=== PATIENT | female | born 2000 | race Caucasian/White ===

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

== ENCOUNTER → 2019-02-06 | Outpatient (CLI) | payer MEDICAID, SELFPAY ==
[2019-02-06 15:46] LABS: Hematocrit 38.9 % (37-47); Mean Corp Hgb Conc 33.4 g/gl (32-36); Mean Corpuscular Hgb 28.2 pg (27.0-32.0); Mean Corpuscular Volume 84.4 fL (81-99); Mean Platelet Vol. 11.8 fl (6.2-12.0); Platelet Count 354 K/mm3 (150-450); RBC Distribution Width CV 12.8 % (11.6-14.6); RBC Distribution Width SD 38.3 fl (35.1-43.9); Red Blood Count 4.61 M/mm3 (4.2-5.4); White Blood Count 11.2 K/mm3 (4.4-11.0)
[2019-02-06 15:50] LABS: Color, Urine Yellow (Yellow); Glucose, Dipstick Normal (Normal); Ketone-Dipstick 5 mg/dl (Negative); Leukocyte Esterase-Dipstick 500 /ul (Negative); Nitrite-Dipstick Negative (Negative); Occult Blood-Urine 10 /ul (Negative); Protein-Dipstick 30 mg/dl (Negative); Urine Bilirubin Dipstick Negative (Negative); Urine Clarity Sl. Cloudy (Clear); Urine Urobilinogen 1 mg/dl (Normal)
[2019-02-06 15:52] LABS: Scan Indicated on CBC? Y/N NO
[2019-02-06 15:55] LABS: AST(SGOT) 70 U/L (15-37); Alanine Aminotransfer ALT/SGPT 131 U/L (13-56); Uric Acid 8.7 mg/dL (2.6-6.0)
== END | disposition home or self-care (01) ==
LOC: WOBLAB 14:03
PROVIDERS: Visit Provider Obstetrics & Gynecology
DX: O13.3 Gestational [pregnancy-induced] hypertension without significant proteinuria, third trimester (principal); Z3A.00 Weeks of gestation of pregnancy not specified
CPT/HCPCS: 36415; 81002; 84450; 84460; 84550; 85027; 87081

== ENCOUNTER 2019-02-09 11:22 | Outpatient (CLI) | payer MEDICAID, SELFPAY ==
[2019-02-09 11:58] LABS: Hematocrit 38.2 % (37-47); Hemoglobin 12.7 g/dl (12.0-15.0); Mean Corp Hgb Conc 33.2 g/gl (32-36); Mean Corpuscular Hgb 28.3 pg (27.0-32.0); Mean Corpuscular Volume 85.1 fL (81-99); Mean Platelet Vol. 11.7 fl (6.2-12.0); Platelet Count 299 K/mm3 (150-450); RBC Distribution Width CV 12.9 % (11.6-14.6); Red Blood Count 4.49 M/mm3 (4.2-5.4); White Blood Count 8.6 K/mm3 (4.4-11.0)
[2019-02-09 11:59] LABS: Scan Indicated on CBC? Y/N NO
[2019-02-09 12:09] LABS: Partial Thromboplast Time 28.1 Seconds (24.1-36.2); Prothrombin Time (Protime)PT. 12.9 SECONDS (11.7-14.9)
[2019-02-09 12:11] LABS: AST(SGOT) 89 U/L (15-37); Alanine Aminotransfer ALT/SGPT 140 U/L (13-56); Creatinine, Serum 0.77 mg/dL (0.55-1.02); EST Glomerular Filtration Rate 103 mL/min (>60); Est Glom Filt Rate - Afr Amer 125 mL/min (>60); Uric Acid 8.8 mg/dL (2.6-6.0)
[2019-02-09 12:15] LABS: Protein, Urine (Random) 31.3 mg/dL (<11.9); Protein:Creat Ratio 206 mg/g CRE (0-200)
[2019-02-09 12:42] VITALS: BMI 38.9
[2019-02-09 12:51] LABS: Bedside Glucose 92 mg/dL (70-110)
--- NOTE | 2019-02-09 13:01 | US_ITS ---
STUDY: SECOND AND THIRD TRIMESTER OBSTETRICAL ULTRASOUND - LIMITED REASON FOR EXAM: Female, 18 years old. Growth LMP: 05/27/2018 PRIOR ULTRASOUND: None. TECHNIQUE: Transabdominal TECHNICAL QUALITY: Adequate. FINDINGS: There is a single intrauterine fetus. The fetus is in a cephalic presentation. There is demonstrated cardiac activity with a heart rate of 135 bpm. There is a normal amniotic fluid volume. The largest amniotic fluid pocket measures 6.5 cm. The amniotic fluid index (MARIAMA) is 16.6 cm. The placenta is anterior in location and is not low lying. There are Grade 3 placental changes. The cervix measures 0.8 cm in length. Internal funneling is present. BIOMETRY: BPD: 8.13 cm: 32 weeks, 5 days HC: 32.76: 37 weeks, 2 days AC: 31.67: 35 weeks, 5 days FL: 6.94: 35 weeks, 5 days Age by LMP: 36 weeks, 6 days. TAMICA by LMP: 03/03/2019. age by current US: 35 weeks, 3 days. TAMICA by current US: 03/13/2019. Estimated weight: 2681 grams, +/- 391 grams, 20 percentile. US/OB Limited With Biometrics IMPRESSION: Intrauterine gestation with sonographic age of 35 weeks 3 days. The cervix measures 0.8 cm in length. Internal funneling is present. Positive cardiac activity. Normal amniotic fluid volume. Normal placenta. Electronically Signed: Lebron Glynn MD at 15:12 EDT Tel , Service support ,
--- NOTE | 2019-02-09 13:06 | US_ITS ---
STUDY: OBSTETRICAL ULTRASOUND - BIOPHYSICAL PROFILE REASON FOR EXAM: Female, 18 years old. well-being LMP: 05/27/2018 PRIOR ULTRASOUND: None. TECHNIQUE: Transabdominal TECHNICAL QUALITY: Adequate. FINDINGS: There is a single intrauterine fetus. The fetus is in a cephalic presentation. There is demonstrated cardiac activity with a heart rate of 135 bpm. There is a normal amniotic fluid volume. The largest amniotic fluid pocket measures 6.5 cm. The amniotic fluid index (MARIAMA) is 16.6 cm. The placenta is anterior in location and is not low lying. There are Grade 3 placental changes. The cervix measures 0.8 cm in length. Internal funneling is present. BIOMETRY: BPD: 8.13 cm: 32 weeks, 5 days HC: 32.76: 37 weeks, 2 days AC: 31.67: 35 weeks, 5 days FL: 6.94: 35 weeks, 5 days Age by LMP: 36 weeks, 6 days. TAMICA by LMP: 03/03/2019. age by current US: 35 weeks, 3 days. TAMICA by current US: 03/13/2019. Estimated weight: 2681 grams, +/- 391 grams, 20 percentile. BIOPHYSICAL PROFILE: Breathing Movements (FBM): 2 Gross Body Movements (GBM): 2 Tone (FT): 2 Amniotic Fluid Volume (AFV): 2 TOTAL SCORE: / 8 US/Biophysical Profile IMPRESSION: Normal biophysical profile of 04/04. Electronically Signed: Lebron Glynn MD at 15:14 EDT Tel , Service support ,
--- NOTE | 2019-02-09 13:13 | US_ITS ---
STUDY: ABDOMINAL ULTRASOUND - RIGHT UPPER QUADRANT REASON FOR VISIT: Female, 18 years old. iTCHY PROTEIN IN URINE--CHOLELITHIASIS. TECHNIQUE: Ultrasound evaluation of the right upper quadrant was performed with real-time and static mooney-scale imaging. TECHNICAL QUALITY: Adequate. COMPARISON: None. FINDINGS: Liver: The liver measures 16.6 cm. There is normal echogenicity of the liver. The bile ducts are within normal limits. Gallbladder: The gallbladder wall measures 2.0 mm. There is a negative sonographic Roper's sign. There is no pericholecystic fluid. There are multiple echogenic structures within the gallbladder, consistent with multiple gallstones. Common Bile Duct (C.B.D.): The common bile duct measures 3.0 mm. Pancreas: There is nonvisualization of the pancreas. Right Kidney: Normal size of the right kidney. The right kidney measures 9.9 cm. There is no right hydronephrosis. US/Abdomen Limited IMPRESSION: Cholelithiasis. Electronically Signed: Shannon Hankins MD at 14:19 EDT Tel , Service support ,
[2019-02-09] MEDS: Betamethasone/Betamethasone 30 MG/5 ML Vial 12 MG IM (13:26)
[2019-02-09 13:42] LABS: Mucous, Urine 0 SEEN /hpf (<or=2+); Red Blood Cells-Urine 0 SEEN /hpf (0-5)
[2019-02-09 13:45] LABS: Color, Urine Yellow (Yellow); Glucose, Dipstick Normal (Normal); Ketone-Dipstick Negative (Negative); Leukocyte Esterase-Dipstick 500 /ul (Negative); Nitrite-Dipstick Negative (Negative); Occult Blood-Urine 10 /ul (Negative); Protein-Dipstick 15 mg/dl (Negative); Specific Gravity, Urine 1.015 (1.002-1.030); Urine Bilirubin Dipstick Negative (Negative); Urine Clarity Clear (Clear); Urine Urobilinogen Normal (Normal)
[2019-02-09 13:59] LABS: Bacteria 1+ /hpf (None Seen); Squamous Epithelial Cells - UA 5-10 SEEN /hpf (5-10); White Blood Cells 10-25 SEEN /hpf (0-5)
[2019-02-09 14:00] LABS: Amphetamine Urine VISTA NEGATIVE (<1000 ng/mL); Barbiturate Urine VISTA NEGATIVE (< 200 ng/mL); Benzodiazepine Urine VISTA NEGATIVE (< 200 ng/mL); Cocaine Urine VISTA NEGATIVE (< 300 ng/mL); Ecstacy Urine VISTA NEGATIVE (< 500 ng/mL); Fibrinogen 573 mg/dl (203-444); Methadone Urine VISTA NEGATIVE (< 300 ng/mL); PCP Urine VISTA NEGATIVE (< 25 ng/mL); THC Urine VISTA NEGATIVE (< 50 ng/mL); Vista UDS pH Range 5
[2019-02-09 14:09] LABS: ALB/GLOB Ratio 0.5 RATIO (0.9-2.4); AST(SGOT) 98 U/L (15-37); Alanine Aminotransfer ALT/SGPT 149 U/L (13-56); Albumin, Serum 2.4 g/dL (3.2-5.0); Alkaline Phosphatase 202 U/L (45-117); Anion Gap 6 (5-15); BUN 9 mg/dL (7-18); BUN/Creat Ratio 12.9 RATIO (10-20); Bilirubin, Direct 0.09 mg/dL (0.00-0.30); Calcium,Total 9.1 mg/dL (8.5-10.1); Chloride 107 mmol/L (98-107); EST Glomerular Filtration Rate 115 mL/min (>60); Est Glom Filt Rate - Afr Amer 139 mL/min (>60); Estimated Creatinine Clearance 161.06 ml/min; GGTP 12 U/L (5-55); Globulin 4.4 g/dL (2.2-4.2); Glucose 81 mg/dL (74-106); Protein, Total 6.8 g/dL (6.4-8.2); Sodium Level 135 mmol/L (136-145)
[2019-02-09] MEDS: Ursodiol 250 MG Tablet PO ×2 (15:46→22:02)
--- NOTE | 2019-02-09 16:16 | PCM.HP.OB ---
- Problem List (1) Elevated liver enzymes Status: Acute (2) Pruritus of in third trimester Status: Acute History Date of Admission: 02/10/19 Final TAMICA: 03/03/19 Gestational age: 36 weeks and 6 days History of this : This is a 18 year-old, at 36w6d weeks gestational age presents due to elevated liver enzymes. Patient was evaluated in the office on Monday and had borderline elevated blood pressures and liver enzymes that were doubled but had normal platelets and no significant proteinuria and was asymptomatic. Patient presents today for repeat evaluation and denies any headache nausea vomiting or right upper quadrant pain. She has had intense pruritus in the last week. She denies any rash. She denies any known exposure to hepatitis, abuse, and denies any recent infection symptoms. Allergies No Known Allergies Allergy (Verified 02/09/19 12:42) Home Medications: Home Medications Vit No.130/Iron/Folic [ Tablet] 1 each PO DAILY 02/09/19 Smoking Status: Never smoker Alcohol: None Number of Fetus(es): 1 Heart Tracin moderate variability reactive no decelerations category I tracing [place]: no regular History Past Pregnancies: Past Pregnancies Delivery Date Name GA/Weeks Outcome Route Weight Infant Gender Labor Length Anesthesia Delivery Location Provider FOB Labs: Mom's Microbiology 02/09/19 13:30 Urine, Clean Catch Urine Culture - Pending Mom's Problem List Problem Status Onset Code Elevated liver enzymes Acute R74.8 Pruritus of in third trimester Acute O99.713, L29.9 Mom's Labs & Results 02/09/19 02/09/19 02/09/19 11:45 11:45 11:45 WBC 8.6 RBC 4.49 Hgb 12.7 Hct 38.2 MCV 85.1 MCH 28.3 MCHC 33.2 RDW 12.9 RDW Differential 40.0 Plt Count 299 MPV 11.7 PT 12.9 INR 1.0 APTT 28.1 Fibrinogen Sodium Potassium Chloride Carbon Dioxide Anion Gap BUN Creatinine Estim Creat Clear Calc Est GFR (MDRD) Af Amer Est GFR (MDRD) Non-Af BUN/Creatinine Ratio Glucose Uric Acid Calcium Total Bilirubin Direct Bilirubin GGT AST ALT Alkaline Phosphatase Total Protein Albumin Globulin Albumin/Globulin Ratio Urine Color Urine Clarity Urine pH Ur Specific [place] Urine Protein Urine Glucose (UA) Urine Ketones Urine Occult Blood Urine Nitrite Urine Bilirubin Urine Urobilinogen Ur Leukocyte Esterase Urine RBC Urine WBC Ur Squamous Epith Cells Urine Bacteria Urine Mucus U Random Total Protein 31.3 H Urine Creatinine 152.00 Protein/Creatinin Ratio 206 H Urine Opiates Screen Urine Methadone Screen Ur Barbiturates Screen Ur Phencyclidine Scrn Ur Amphetamines Screen U Methamphetamin-MDMA U Benzodiazepines Scrn Urine Cocaine Screen U Cannabinoids Screen Ur Drug Screen Comment Hepatitis A IgM Ab Hep Bs Antigen Hep B Core IgM Ab Hepatitis C Ab (EIA) Miscellaneous Test POC Glucose Blood Type Antibody Screen 02/09/19 02/09/19 02/09/19 11:45 11:45 12:40 WBC RBC Hgb Hct MCV MCH MCHC RDW RDW Differential Plt Count MPV PT INR APTT Fibrinogen Sodium Potassium Chloride Carbon Dioxide Anion Gap BUN Creatinine 0.77 Estim Creat Clear Calc Est GFR (MDRD) Af Amer 125 Est GFR (MDRD) Non-Af 103 BUN/Creatinine Ratio Glucose Uric Acid 8.8 H Calcium Total Bilirubin Direct Bilirubin GGT AST 89 H ALT 140 H Alkaline Phosphatase Total Protein Albumin Globulin Albumin/Globulin Ratio Urine Color Urine Clarity Urine pH Ur Specific [place] Urine Protein Urine Glucose (UA) Urine Ketones Urine Occult Blood Urine Nitrite Urine Bilirubin Urine Urobilinogen Ur Leukocyte Esterase Urine RBC Urine WBC Ur Squamous Epith Cells Urine Bacteria Urine Mucus U Random Total Protein Urine Creatinine Protein/Creatinin Ratio Urine Opiates Screen Urine Methadone Screen Ur Barbiturates Screen Ur Phencyclidine Scrn Ur Amphetamines Screen U Methamphetamin-MDMA U Benzodiazepines Scrn Urine Cocaine Screen U Cannabinoids Screen Ur Drug Screen Comment Hepatitis A IgM Ab Hep Bs Antigen Hep B Core IgM Ab Hepatitis C Ab (EIA) Miscellaneous Test POC Glucose 92 Blood Type B POSITIVE Antibody Screen NEGATIVE 02/09/19 02/09/19 02/09/19 13:30 13:30 13:30 WBC RBC Hgb Hct MCV MCH MCHC RDW RDW Differential Plt Count MPV PT INR APTT Fibrinogen 573 H Sodium 135 L Potassium 4.0 Chloride 107 Carbon Dioxide 22.0 Anion Gap 6 BUN 9 Creatinine 0.70 Estim Creat Clear Calc 161.06 Est GFR (MDRD) Af Amer 139 Est GFR (MDRD) Non-Af 115 BUN/Creatinine Ratio 12.9 Glucose 81 Uric Acid Calcium 9.1 Total Bilirubin 0.30 Direct Bilirubin 0.09 GGT 12 AST 98 H ALT 149 H Alkaline Phosphatase 202 H Total Protein 6.8 Albumin 2.4 L Globulin 4.4 H Albumin/Globulin Ratio 0.5 L Urine Color Yellow Urine Clarity Clear Urine pH 6.0 Ur Specific [place] 1.015 Urine Protein 15 H Urine Glucose (UA) Normal Urine Ketones Negative Urine Occult Blood 10 H Urine Nitrite Negative Urine Bilirubin Negative Urine Urobilinogen Normal Ur Leukocyte Esterase 500 H Urine RBC 0 SEEN Urine WBC 10-25 SEEN Ur Squamous Epith Cells 5-10 SEEN Urine Bacteria 1+ Urine Mucus 0 SEEN U Random Total Protein Urine Creatinine Protein/Creatinin Ratio Urine Opiates Screen Urine Methadone Screen Ur Barbiturates Screen Ur Phencyclidine Scrn Ur Amphetamines Screen U Methamphetamin-MDMA U Benzodiazepines Scrn Urine Cocaine Screen U Cannabinoids Screen Ur Drug Screen Comment Hepatitis A IgM Ab Hep Bs Antigen Hep B Core IgM Ab Hepatitis C Ab (EIA) Miscellaneous Test POC Glucose Blood Type Antibody Screen 02/09/19 02/09/19 02/09/19 13:30 13:30 13:30 WBC RBC Hgb Hct MCV MCH MCHC RDW RDW Differential Plt Count MPV PT INR APTT Fibrinogen Sodium Potassium Chloride Carbon Dioxide Anion Gap BUN Creatinine Estim Creat Clear Calc Est GFR (MDRD) Af Amer Est GFR (MDRD) Non-Af BUN/Creatinine Ratio Glucose Uric Acid Calcium Total Bilirubin Direct Bilirubin GGT AST ALT Alkaline Phosphatase Total Protein Albumin Globulin Albumin/Globulin Ratio Urine Color Urine Clarity Urine pH Ur Specific [place] Urine Protein Urine Glucose (UA) Urine Ketones Urine Occult Blood Urine Nitrite Urine Bilirubin Urine Urobilinogen Ur Leukocyte Esterase Urine RBC Urine WBC Ur Squamous Epith Cells Urine Bacteria Urine Mucus U Random Total Protein Urine Creatinine Protein/Creatinin Ratio Urine Opiates Screen NEGATIVE Urine Methadone Screen NEGATIVE Ur Barbiturates Screen NEGATIVE Ur Phencyclidine Scrn NEGATIVE Ur Amphetamines Screen NEGATIVE U Methamphetamin-MDMA NEGATIVE U Benzodiazepines Scrn NEGATIVE Urine Cocaine Screen NEGATIVE U Cannabinoids Screen NEGATIVE Ur Drug Screen Comment Hepatitis A IgM Ab Pending Hep Bs Antigen Pending Hep B Core IgM Ab Pending Hepatitis C Ab (EIA) Pending Miscellaneous Test Pending POC Glucose Blood Type Antibody Screen Social History Smoking Status Never smoker Expected Delivery Method: Spontaneous Vaginal Review of Systems Constitutional: Denies: Fever, Malaise Eyes: Denies: Blurred vision, Vision Change HEENT: Denies: Head Aches, Visual Changes Cardiovascular: Denies: Chest Pain, Palpitations Respiratory: Denies: Cough, Shortness of Breath, Wheezing Gastrointestinal: Denies: Abdominal Pain, Diarrhea, Nausea, Vomiting Genitourinary: Denies: Dysuria, Hematuria Musculoskeletal: Denies: Joint Pain, Muscle pain Skin: Reports: Pruritis. Denies: Lesions, Rash Neurological: Denies: Blurred vision, Focal weakness, Headaches Psychiatric: Denies: Anxiety, Depression Endocrine: Denies: Heat/ Cold Intolerance Hematologic/ Lymphatic: Denies: Easy Bruising, Easy Bleeding Physical Exam General: Alert, Cooperative, No apparent distress HEENT: Atraumatic, Normocephalic. Negative for: Thyromegaly, Lymphadenopathy Cardiovascular: Regular rate Lungs: Normal air movement Abdomen: Soft, Non Tender, Gravid Neurological: Deep Tendon Reflexes 2+/4 and Symmetrical, Neuro grossly intact. Negative for: Clonus LA[employer]CHING [employer]IC: Normal external genitalia. Negative for: Vulvar lesions Estimated gestational size: Appropriate for gestational size Presentation: Cephalic Assessment/Plan All Active Problems Elevated liver enzymes (Acute) Pruritus of in third trimester (Acute) This is a 18 year-old, at 36w6d weeks gestational age presents with Pruritis and elevated liver enzymes. Extensive laboratory panel ordered, right upper quadrant ultrasound shows cholelithiasis, growth ultrasound shows normal fluid and 20th percentile for growth. 8 out of 8 BPP. Reassuring heart tones. Discussed with maternal- medicine and patient and due to the length of time required to receive bile acids lab results, recommendation for empiric therapy with Actigall for suspicion of cholestasis of and if improvement in symptoms over 48 hours consider delivery due to high suspicion for cholestasis. Continue blood pressure monitoring and repeat CBC, CMP, and urine protein creatinine ratio in the morning. Prematurity?1 dose of Celestone given.
[2019-02-10] MEDS: Ursodiol 250 MG Tablet PO (05:25)
[2019-02-10 06:04] LABS: AST(SGOT) 122 U/L (15-37); Alanine Aminotransfer ALT/SGPT 193 U/L (13-56)
[2019-02-10 06:07] LABS: Protein, Urine (Random) 19.5 mg/dL (<11.9); Protein:Creat Ratio 205 mg/g CRE (0-200)
[2019-02-10 06:09] LABS: Absolute Lymphocyte Count 1.97 X10^3/ul (0.83-4.51); Absolute Neutrophil Count 10.9 X10^3/uL (2.0-7.7); Hematocrit 36.5 % (37-47); Hemoglobin 12.2 g/dl (12.0-15.0); Lymphocyte # 1.97 X10^3/ul (4.0); Lymphocyte % 14.6 % (19-41); Mean Corp Hgb Conc 33.4 g/gl (32-36); Mean Corpuscular Hgb 28.6 pg (27.0-32.0); Mean Corpuscular Volume 85.5 fL (81-99); Mean Platelet Vol. 11.9 fl (6.2-12.0); Monocyte# 0.67 X10^3/uL; Neutrophil # 10.85 X10^3/uL (2.7-7.7); Neutrophil % 80.2 % (47-70); Platelet Count 315 K/mm3 (150-450); RBC Distribution Width SD 40.2 fl (35.1-43.9); Red Blood Count 4.27 M/mm3 (4.2-5.4); White Blood Count 13.5 K/mm3 (4.4-11.0)
[2019-02-10 06:17] LABS: POSITIVE COUNT NO; POSITIVE DIFFERENTIAL NO; POSITIVE MORPHOLOGY NO
--- NOTE | 2019-02-10 06:19 | PCM.PN.OB ---
Patient Problems: Active and Suspected Problems Elevated liver enzymes (Acute) Pruritus of in third trimester (Acute) Cholelithiasis (Acute) Subjective: pruritis improved, no vb lof good fm doesn't feel contractions. Objective: fht 120 moderate variability reactive no decelerations category I tracing [place]: irritability- regular - Physical Exam General: Alert, Oriented x3 Lungs: Normal air movement Cardiovascular: Tachycardic Abdomen: Soft, Non Tender, Gravid Extremities: Edema Neurological: Deep Tendon Reflexes 2+/4 and Symmetrical - no clonus Weight: 174 lb Body Mass Index (BMI) 38.9 Laboratory Tests Past 24 Hrs 02/09/19 02/09/19 02/09/19 11:45 11:45 11:45 WBC 8.6 RBC 4.49 Hgb 12.7 Hct 38.2 MCV 85.1 MCH 28.3 MCHC 33.2 RDW 12.9 RDW Differential 40.0 Plt Count 299 MPV 11.7 Immature Gran % (Auto) Neut % (Auto) Lymph % (Auto) [place] % (Auto) Eos % (Auto) Baso % (Auto) Absolute Neuts (auto) Absolute Lymphs (auto) Total Counted PT 12.9 INR 1.0 APTT 28.1 Fibrinogen Sodium Potassium Chloride Carbon Dioxide Anion Gap BUN Creatinine Estim Creat Clear Calc Est GFR (MDRD) Af Amer Est GFR (MDRD) Non-Af BUN/Creatinine Ratio Glucose Uric Acid Calcium Total Bilirubin Direct Bilirubin GGT AST ALT Alkaline Phosphatase Total Protein Albumin Globulin Albumin/Globulin Ratio Urine Color Urine Clarity Urine pH Ur Specific [place] Urine Protein Urine Glucose (UA) Urine Ketones Urine Occult Blood Urine Nitrite Urine Bilirubin Urine Urobilinogen Ur Leukocyte Esterase Urine RBC Urine WBC Ur Squamous Epith Cells Urine Bacteria Urine Mucus U Random Total Protein 31.3 H Urine Creatinine 152.00 Protein/Creatinin Ratio 206 H Urine Opiates Screen Urine Methadone Screen Ur Barbiturates Screen Ur Phencyclidine Scrn Ur Amphetamines Screen U Methamphetamin-MDMA U Benzodiazepines Scrn Urine Cocaine Screen U Cannabinoids Screen Ur Drug Screen Comment Hepatitis A IgM Ab Hep Bs Antigen Hep B Core IgM Ab Hepatitis C Ab (EIA) Miscellaneous Test Blood Type Antibody Screen 02/09/19 02/09/19 02/09/19 11:45 11:45 13:30 WBC RBC Hgb Hct MCV MCH MCHC RDW RDW Differential Plt Count MPV Immature Gran % (Auto) Neut % (Auto) Lymph % (Auto) [place] % (Auto) Eos % (Auto) Baso % (Auto) Absolute Neuts (auto) Absolute Lymphs (auto) Total Counted PT INR APTT Fibrinogen 573 H Sodium Potassium Chloride Carbon Dioxide Anion Gap BUN Creatinine 0.77 Estim Creat Clear Calc Est GFR (MDRD) Af Amer 125 Est GFR (MDRD) Non-Af 103 BUN/Creatinine Ratio Glucose Uric Acid 8.8 H Calcium Total Bilirubin Direct Bilirubin GGT AST 89 H ALT 140 H Alkaline Phosphatase Total Protein Albumin Globulin Albumin/Globulin Ratio Urine Color Urine Clarity Urine pH Ur Specific [place] Urine Protein Urine Glucose (UA) Urine Ketones Urine Occult Blood Urine Nitrite Urine Bilirubin Urine Urobilinogen Ur Leukocyte Esterase Urine RBC Urine WBC Ur Squamous Epith Cells Urine Bacteria Urine Mucus U Random Total Protein Urine Creatinine Protein/Creatinin Ratio Urine Opiates Screen Urine Methadone Screen Ur Barbiturates Screen Ur Phencyclidine Scrn Ur Amphetamines Screen U Methamphetamin-MDMA U Benzodiazepines Scrn Urine Cocaine Screen U Cannabinoids Screen Ur Drug Screen Comment Hepatitis A IgM Ab Hep Bs Antigen Hep B Core IgM Ab Hepatitis C Ab (EIA) Miscellaneous Test Blood Type B POSITIVE Antibody Screen NEGATIVE 02/09/19 02/09/19 02/09/19 13:30 13:30 13:30 WBC RBC Hgb Hct MCV MCH MCHC RDW RDW Differential Plt Count MPV Immature Gran % (Auto) Neut % (Auto) Lymph % (Auto) [place] % (Auto) Eos % (Auto) Baso % (Auto) Absolute Neuts (auto) Absolute Lymphs (auto) Total Counted PT INR APTT Fibrinogen Sodium 135 L Potassium 4.0 Chloride 107 Carbon Dioxide 22.0 Anion Gap 6 BUN 9 Creatinine 0.70 Estim Creat Clear Calc 161.06 Est GFR (MDRD) Af Amer 139 Est GFR (MDRD) Non-Af 115 BUN/Creatinine Ratio 12.9 Glucose 81 Uric Acid Calcium 9.1 Total Bilirubin 0.30 Direct Bilirubin 0.09 GGT 12 AST 98 H ALT 149 H Alkaline Phosphatase 202 H Total Protein 6.8 Albumin 2.4 L Globulin 4.4 H Albumin/Globulin Ratio 0.5 L Urine Color Yellow Urine Clarity Clear Urine pH 6.0 Ur Specific [place] 1.015 Urine Protein 15 H Urine Glucose (UA) Normal Urine Ketones Negative Urine Occult Blood 10 H Urine Nitrite Negative Urine Bilirubin Negative Urine Urobilinogen Normal Ur Leukocyte Esterase 500 H Urine RBC 0 SEEN Urine WBC 10-25 SEEN Ur Squamous Epith Cells 5-10 SEEN Urine Bacteria 1+ Urine Mucus 0 SEEN U Random Total Protein Urine Creatinine Protein/Creatinin Ratio Urine Opiates Screen NEGATIVE Urine Methadone Screen NEGATIVE Ur Barbiturates Screen NEGATIVE Ur Phencyclidine Scrn NEGATIVE Ur Amphetamines Screen NEGATIVE U Methamphetamin-MDMA NEGATIVE U Benzodiazepines Scrn NEGATIVE Urine Cocaine Screen NEGATIVE U Cannabinoids Screen NEGATIVE Ur Drug Screen Comment Hepatitis A IgM Ab Hep Bs Antigen Hep B Core IgM Ab Hepatitis C Ab (EIA) Miscellaneous Test Blood Type Antibody Screen 02/09/19 02/09/19 02/10/19 13:30 13:30 05:15 WBC RBC Hgb Hct MCV MCH MCHC RDW RDW Differential Plt Count MPV Immature Gran % (Auto) Neut % (Auto) Lymph % (Auto) [place] % (Auto) Eos % (Auto) Baso % (Auto) Absolute Neuts (auto) Absolute Lymphs (auto) Total Counted PT INR APTT Fibrinogen Sodium Potassium Chloride Carbon Dioxide Anion Gap BUN Creatinine Estim Creat Clear Calc Est GFR (MDRD) Af Amer Est GFR (MDRD) Non-Af BUN/Creatinine Ratio Glucose Uric Acid Calcium Total Bilirubin Direct Bilirubin GGT AST ALT Alkaline Phosphatase Total Protein Albumin Globulin Albumin/Globulin Ratio Urine Color Urine Clarity Urine pH Ur Specific [place] Urine Protein Urine Glucose (UA) Urine Ketones Urine Occult Blood Urine Nitrite Urine Bilirubin Urine Urobilinogen Ur Leukocyte Esterase Urine RBC Urine WBC Ur Squamous Epith Cells Urine Bacteria Urine Mucus U Random Total Protein 19.5 H Urine Creatinine 94.90 Protein/Creatinin Ratio 205 H Urine Opiates Screen Urine Methadone Screen Ur Barbiturates Screen Ur Phencyclidine Scrn Ur Amphetamines Screen U Methamphetamin-MDMA U Benzodiazepines Scrn Urine Cocaine Screen U Cannabinoids Screen Ur Drug Screen Comment Hepatitis A IgM Ab Pending Hep Bs Antigen Pending Hep B Core IgM Ab Pending Hepatitis C Ab (EIA) Pending Miscellaneous Test Pending Blood Type Antibody Screen 02/10/19 02/10/19 05:20 05:20 WBC 13.5 H RBC 4.27 Hgb 12.2 Hct 36.5 L MCV 85.5 MCH 28.6 MCHC 33.4 RDW 13.0 RDW Differential 40.2 Plt Count 315 MPV 11.9 Immature Gran % (Auto) 0.200 Neut % (Auto) 80.2 H Lymph % (Auto) 14.6 L [place] % (Auto) 5.0 Eos % (Auto) 0.0 Baso % (Auto) 0.0 Absolute Neuts (auto) 10.9 H Absolute Lymphs (auto) 1.97 Total Counted Not Reportable PT INR APTT Fibrinogen Sodium Potassium Chloride Carbon Dioxide Anion Gap BUN Creatinine Estim Creat Clear Calc Est GFR (MDRD) Af Amer Est GFR (MDRD) Non-Af BUN/Creatinine Ratio Glucose Uric Acid Calcium Total Bilirubin Direct Bilirubin GGT AST 122 H ALT 193 H Alkaline Phosphatase Total Protein Albumin Globulin Albumin/Globulin Ratio Urine Color Urine Clarity Urine pH Ur Specific [place] Urine Protein Urine Glucose (UA) Urine Ketones Urine Occult Blood Urine Nitrite Urine Bilirubin Urine Urobilinogen Ur Leukocyte Esterase Urine RBC Urine WBC Ur Squamous Epith Cells Urine Bacteria Urine Mucus U Random Total Protein Urine Creatinine Protein/Creatinin Ratio Urine Opiates Screen Urine Methadone Screen Ur Barbiturates Screen Ur Phencyclidine Scrn Ur Amphetamines Screen U Methamphetamin-MDMA U Benzodiazepines Scrn Urine Cocaine Screen U Cannabinoids Screen Ur Drug Screen Comment Hepatitis A IgM Ab Hep Bs Antigen Hep B Core IgM Ab Hepatitis C Ab (EIA) Miscellaneous Test Blood Type Antibody Screen POC Glucose 02/09/19 12:40 POC Glucose 92 Medical Necessity - Tobacco Use Smoking Status: Never smoker Assessment/Plan All Active Problems Elevated liver enzymes (Acute) Pruritus of in third trimester (Acute) Cholelithiasis (Acute) This is a 18 year-old, at 37 weeks gestational age presents with Pruritis and elevated liver enzymes. -Extensive laboratory panel ordered- negative results so far but still has some labs pending, -right upper quadrant ultrasound shows cholelithiasis, growth ultrasound shows normal fluid and 20th percentile for growth. 8 out of 8 BPP. Reassuring heart tones. -Discussed with maternal- medicine and patient and due to the length of time required to receive bile acids lab results, recommendation for empiric therapy with Actigall for suspicion of cholestasis of and if improvement in symptoms over 48 hours (02/11/19) consider delivery due to high suspicion for cholestasis. -Continue blood pressure monitoring - all normal, liver enzymes increasing, urine protein still stable in normal range. -Prematurity?1 dose of Celestone given.
--- NOTE | 2019-02-10 06:25 | DCINST_ITS ---
- Discharge Diagnoses Current Active Problems: Current Active and Chronic Problems Cholelithiasis (Acute) Elevated liver enzymes (Acute) Pruritus of in third trimester (Acute) You will use the following diet at home:: Regular Discharge Activity: Return to Normal Activity May resume sexual activity in: No Restrictions Call your doctor if you observe: Fever of 101 or Higher, Swelling in the ankles, Chest pain, - - decreased movement, vaginal bleeding or loss of fluid, regular contractions. Additional Instructions: follow formal kick counts twice daily, lay down and feel 10 movement in up to two hours- if not you need seen on labor and delivery immediately Allergies/Adverse Reactions: Allergies No Known Allergies Allergy (Verified 02/09/19 12:42) Medications to take at Discharge Vit No.130/Iron/Folic [ Tablet] 1 each PO DAILY 02/09/19 Test Results: Test results from this visit will be discussed in further detail at your follow- up appointment, if applicable. Please Follow Up With: Leobardo Lim MD - call office first thing monday for appointment. When: 02/11/19
[2019-02-10] MEDS: 0.9% NaCl Peripheral Flush Adult/Peds IV (06:30)
[2019-02-12 05:06] LABS: HEPATITIS B SURFACE AG Negative (Negative); Hepatitis A IgM Antibody Negative (Negative); Hepatitis B Core AB IgM Negative (Negative)
[2019-02-12 15:32] LABS: Hep C Antibodies <0.1 s/co ratio (0.0-0.9)
== END 2019-02-10 07:30 | disposition home or self-care (01) ==
LOC: WPOUT 11:23 → WP 11:24
PROVIDERS: Referring Provider Obstetrics & Gynecology; Visit Provider Obstetrics & Gynecology
DX: O99.613 Diseases of the digestive system complicating pregnancy, third trimester (principal); K80.20 Calculus of gallbladder without cholecystitis without obstruction; O26.893 Other specified pregnancy related conditions, third trimester; L29.9 Pruritus, unspecified; Z3A.37 37 weeks gestation of pregnancy
CPT/HCPCS: 36415; 59025; 59050; 76705; 76816; 76818; 80053; 80074; 80307; 81001; 82248; 82565; 82570; 82962; 82977; 84156; 84450; 84460; 84550; 85025; 85027; 85384; 85610; 85730; 86850; 86900; 87086; 87088; 96372; 99218; A4216; G0378; J0702

== ENCOUNTER 2019-02-11 06:53 | Inpatient (IN) | payer MEDICAID, SELFPAY ==
[2019-02-11 07:08] VITALS: BMI 39.8
[2019-02-11] MEDS: Lactated Ringers 1,000 ML 50 ML IV ×3 (07:35→18:07)
[2019-02-11 07:57] LABS: Absolute Lymphocyte Count 2.98 X10^3/ul (0.83-4.51); Absolute Neutrophil Count 7.6 X10^3/uL (2.0-7.7); Basophil# 0.02 X10^3/uL; Basophil% 0.2 % (0-1); Eosinophil# 0.07 X10^3/uL; Eosinophils% 0.6 % (0-5); Hematocrit 35.1 % (37-47); Hemoglobin 11.5 g/dl (12.0-15.0); Lymphocyte # 2.98 X10^3/ul (4.0); Lymphocyte % 26.3 % (19-41); Mean Corp Hgb Conc 32.8 g/gl (32-36); Mean Corpuscular Volume 85.4 fL (81-99); Mean Platelet Vol. 12.1 fl (6.2-12.0); Monocyte# 0.69 X10^3/uL; Monocyte% 6.1 % (0-10); Neutrophil # 7.56 X10^3/uL (2.7-7.7); Neutrophil % 66.6 % (47-70); POSITIVE COUNT NO; POSITIVE DIFFERENTIAL NO; POSITIVE MORPHOLOGY NO; Platelet Count 309 K/mm3 (150-450); RBC Distribution Width CV 13.2 % (11.6-14.6); RBC Distribution Width SD 41.1 fl (35.1-43.9); Red Blood Count 4.11 M/mm3 (4.2-5.4); White Blood Count 11.3 K/mm3 (4.4-11.0)
[2019-02-11] MEDS: Oxytocin 30 units/NS 500 ml 30 UNITS/500 ML IV.SOLN IV (07:57)
[2019-02-11] MEDS: fentaNYL-bupivacaine (epidural) 100 ML BAG EPIDURAL ×2 (12:40→18:19)
[2019-02-11] MEDS: Oxytocin 30 units/NS 500 ml 30 UNITS/500 ML IV.SOLN 334 UNITS IV (20:31)
--- NOTE | 2019-02-11 20:59 | PLAC_PTH ---
PATIENT: ERNESTINE MCDONNELL LOC: [facility] U#:[id number] AGE/SX: 18/ ROOM: WP018 RE02/11/[address]: Dr. Leobardo Lim MD : 2000 BED: 1 DIS: 02/13/2019 SPEC #: [id number] RECD: 02/12/19 19:23 STATUS: CARLOS REAngelica #: [id number] LOIS: 02/11/19 20:[address]: Leobardo Lim DEPT: SURGICAL PATHOLOGY RECD BY: Jean Carlos Lima ENTERED: 02/13/19 10:54 SP TYPE: PLACENTA OTHR DR: No Primary Care Phys Tissues: Placenta, NOS Procedures: Surgery Specimen Level V HEADER OPERATION: Vaginal delivery PRE-OP DIAGNOSIS: Moderate meconium staining and severe PIH TISSUE SUBMITTED: Placenta MICROSCOPIC DIAGNOSIS Placenta, vaginal delivery: Jordan placenta, 503 gm (weight consistent with 10-99th percentile). Trivascular umbilical cord showing acute funisitis (maternal end only). Moderate subchorionic fibrin deposition with calcification. Villous maturation consistent with gestational age. Mild fibromuscular hyperplasia of stem villous blood vessels. Meconium-stained membranes, negative for inflammation. CE:nina 02/15/19 MICROSCOPIC DESCRIPTION Slides are reviewed. GROSS DESCRIPTION / CLINICAL INFORMATION: A. Weight: 2.588 kg B. Gestational Age: 37 weeks C. Sex: Male Received in fixative is one container labeled with the patient's name and and designated placenta. The specimen consists of a discoid, jordan placenta measuring 14.5 x 14 x 4 cm with a stripped weight of 503 gm. The umbilical cord measures 37 cm in length and varies in diameter from 1 to 1.5 cm. Grossly, no true knot is identified. The umbilical cord is inserted paracentrally. Cross-sectioning demonstrates three blood vessels. The surface of the placenta is greenish-blue without significant subchorionic plaque. Blood vessels are congested and show usual branching distribution. The attached membranes are incomplete and show disruption at the placental edge. The membranes are greenish, opaque in color. The maternal surface of the placenta is reddish-brown with intact cotyledons. Some surface granularity is noted. Cross-sections through the placenta demonstrate cut surfaces which are reddish-pink, soft and spongy. Grossly, no infarct or other parenchymal lesion is found. Bucket Turner sections are submitted as follows: 1 - umbilical cord, end and membranes, 2??umbilical cord, maternal end and membranes, 3 - central placenta, surface, 4 - peripheral placenta, 5 - central placenta, maternal surface. / CE:nina 02/14/19 TC:2 CPT: 29419
--- NOTE | 2019-02-11 21:01 | PCM.OPRPT ---
Vaginal Delivery Maternal Presentation: Medically Indicated Induction - Severe PIH, possible cholestasis of Method of Induction: Pitocin, Amniotomy Medical Reason for Induction: Preeclampsia, eclampsia Amniotic Membrane Rupture Type: Artificial Amniotic Fluid Description: Moderate meconium Final TAMICA: 03/03/19 Final TAMICA Source: US <20 weeks Gestational age: 37 Weeks and 1 Days doctor who attended delivery (if requested by OB): Quinn Carias Date of Procedure: 02/11/19 Pre-Operative Diagnosis: IUP, Severe -Induced Hypertension, Possible Cholestasis Post-Operative Diagnosis: IUP, Severe -Induced Hypertension, Possible Cholestasis Surgery/ Procedure Performed: Vacuum Assisted Vaginal Delivery Type of Anesthesia: Epidural Description of Procedure: Spontaneous vaginal delivery of a viable male infant with Apgars of 8/9 from an occiput anterior presentation with moderate meconium-stained fluid and normal three-vessel placenta. No episiotomy or laceration. Kiwi vacuum used x4 gentle pulls from low outlet to expedite delivery of the head due to deep variable decelerations with pushing area sponges okay. Delivery physician: Leobardo Lim MD. Presentation: Vertex Placental Delivery Description: Spontaneous Placenta Disposition: Sent to Pathology Cord Vessel Description: 3 Vessels Cord Gases drawn per routine: VBG Cord Entanglement: None Estimated Blood Loss: 250 cc Infant A gender: Male (1 minute): 8 (5 minute): 9 Episiotomy Description: None Laceration: None Medications given after delivery: IV Pitocin Complications: None
[2019-02-11] MEDS: Oxytocin 30 units/NS 500 ml 30 UNITS/500 ML IV.SOLN 167 UNITS IV (21:02)
--- NOTE | 2019-02-11 21:06 | PCM.DCVAG ---
Discharge Diet: No Restrictions Discharge Activity: May Shower, May Take a Tub Bath May resume sexual activity in: 4-6 weeks Additional Activity Instructions:: Nothing in the vagina for 4-6 weeks. You may return to work/school in 6 weeks. Call your doctor if you observe: Fever of 101 or Higher, Inability to urinate, Inability to have a bowel movement, Using more than one pad per hour Additional Instructions: If you experience any of the following, contact your healthcare provider. Bleeding that soaks a pad every hour for 2 hours Fever 100.4 or higher Unrelieved incision or abdominal pain Swelling, redness, discharge or bleeding from your incision or episiotomy site Your incision begins to separate Problems urinating (including inability to urinate or burning while urinating). Visual changes Severe headache Flu-like symptoms Pain or redness in one of both of your breasts Pain, warmth, tenderness or swelling in your legs, especially the calf area Frequent nausea and vomiting Symptoms of depression or anxiety If you experience any of the following, call 911 or go to the nearest Emergency Room. Chest pain Problems breathing Seizure activity Partial or complete paralysis of a body part, slurred speech, weakness or drooping of the face, or a sudden inability to walk or hold your balance Allergies/Adverse Reactions: Allergies No Known Allergies Allergy (Verified 02/11/19 07:55) Medications to take at Discharge Vit No.130/Iron/Folic [ Tablet] 1 each PO DAILY 02/09/19 Please Follow Up With: Leobardo Lim MD - [phone] When: Call to make an appointment with your doctor in 6 weeks. Primary Care Physician: Care Physician,No Primary [Primary Care Provider] - Test Results: Test results from this visit will be discussed in further detail at your follow-up appointment, if applicable.
--- NOTE | 2019-02-11 21:08 | DCINST_ITS ---
Discharge Diet: No Restrictions Discharge Activity: May Shower, May Take a Tub Bath May resume sexual activity in: 4-6 weeks Additional Activity Instructions:: Nothing in the vagina for 4-6 weeks. You may return to work/school in 6 weeks. Call your doctor if you observe: Fever of 101 or Higher, Inability to urinate, Inability to have a bowel movement, Using more than one pad per hour Additional Instructions: If you experience any of the following, contact your healthcare provider. * Bleeding that soaks a pad every hour for 2 hours * Fever 100.4 or higher * Unrelieved incision or abdominal pain * Swelling, redness, discharge or bleeding from your incision or episiotomy site * Your incision begins to separate * Problems urinating (including inability to urinate or burning while urinating). * Visual changes * Severe headache * Flu-like symptoms * Pain or redness in one of both of your breasts * Pain, warmth, tenderness or swelling in your legs, especially the calf area * Frequent nausea and vomiting * Symptoms of depression or anxiety If you experience any of the following, call 911 or go to the nearest Emergency Room. * Chest pain * Problems breathing * Seizure activity * Partial or complete paralysis of a body part, slurred speech, weakness or drooping of the face, or a sudden inability to walk or hold your balance Allergies/Adverse Reactions: Allergies No Known Allergies Allergy (Verified 02/11/19 07:55) Medications to take at Discharge Vit No.130/Iron/Folic [ Tablet] 1 each PO DAILY 02/09/19 Please Follow Up With: Leobardo Lim MD - [phone] When: Call to make an appointment with your doctor in 6 weeks. Primary Care Physician: Care Physician,No Primary [Primary Care Provider] - Test Results: Test results from this visit will be discussed in further detail at your follow- up appointment, if applicable.
[2019-02-12 01:45] VITALS: BP 134/78; PULSE 85; RESP 18; TEMP 36.6; O2SAT 99
[2019-02-12 03:55] VITALS: BP 118/64; PULSE 70; RESP 18; TEMP 36.8
[2019-02-12 07:30] VITALS: BP 143/79; PULSE 75; RESP 18; TEMP 37.2
--- NOTE | 2019-02-12 07:47 | PCM.PN.OB ---
Subjective: Patient without complaints. Breast-feeding going well. Minimal vaginal bleeding reported. - Physical Exam Vital Signs Temp Pulse Resp BP Pulse Ox 98.2 F 70 18 118/64 99 02/12/19 03:55 02/12/19 03:55 02/12/19 03:55 02/12/19 03:55 02/12/19 01:45 Oxygen Delivery Method Room Air Weight: 177 lb 9.6 oz Body Mass Index (BMI) 39.8 Intake and Output for Last 24 Hours 02/10/19 02/11/19 02/12/19 23:59 23:59 23:59 Intake Total 1459 / 1459 Output Total 1400 / 1400 950 / 950 Balance 59 / 59 -950 / -950 Laboratory Tests Past 24 Hrs 02/11/19 02/11/19 07:35 07:35 WBC 11.3 H RBC 4.11 L Hgb 11.5 L Hct 35.1 L MCV 85.4 MCH 28.0 MCHC 32.8 RDW 13.2 RDW Differential 41.1 Plt Count 309 MPV 12.1 H Immature Gran % (Auto) 0.200 Neut % (Auto) 66.6 Lymph % (Auto) 26.3 [place] % (Auto) 6.1 Eos % (Auto) 0.6 Baso % (Auto) 0.2 Absolute Neuts (auto) 7.6 Absolute Lymphs (auto) 2.98 Total Counted Not Reportable Blood Type B POSITIVE Antibody Screen NEGATIVE Medical Necessity - Tobacco Use Smoking Status: Never smoker Assessment/Plan All Active Problems Cholelithiasis (Acute) Elevated liver enzymes (Acute) Pruritus of in third trimester (Acute) Doing well day #1 status post routine vaginal delivery. Continuing present care.
--- NOTE | 2019-02-12 09:04 | NURSING ---
[id number] dr froilan webber in room to round on pt. made aware of current bp
[2019-02-12] MEDS: Acetaminophen 500 MG Tablet 1000 MG PO (09:51)
[2019-02-12 12:00] VITALS: BP 126/75; PULSE 81; RESP 16; TEMP 36.8
--- NOTE | 2019-02-12 15:00 | CASEMGMT ---
Social Work Assessment Labor and Delivery Unit Date of Referral: 02/12/19 Time of Referral: 08 Referred By: social work identification Date of Intervention: 02/12/19 Time of Intervention: 1500 Reason for Referral: teen mother at 18 years old; first time mom, assess for resources History obtained from: mother of baby (MOB) Cristy Smith and medical records; father of baby (FOB) Miguel Chaves present for the latter part of conversation. Household composition: MOB and FOB reside with FOB?s parents in [place], [place]. MOB reports has lived in this home since August 2018. MOB reports home situation is safe and adequate. Patient's parent/guardian status: MOB is 18, involved with FOB for 1 year. MOB denies any form of abuse in relationship with FOB. baby Tommy Chaves is the first baby for both parents. Medical History: MOB is G1, P0 to 1 after delivering Tommy. MOB with care starting in the first trimester at 10 weeks. MOB induced due to pre-eclampsia at 36.6 weeks. Baby born weighing 5 pounds 13 ounces, apgars 9 and 9 at 1 and 5 minutes of life. Educational Status: MOB graduated high school. Denies any IEP in school, denies any issues with reading, writing, or learning comprehension. Financial Status: MOB was working at [employer], plans to take a month or two off of work and then return to work. FOB works at [employer] as a shoe reconditioner. Infant Supplies: MOB reports to have needed supplies including bassinet, crib, car seat, clothing, diapers, wipes, and breast pump. Childcare/Caregiver(s): MOB and FOB will be primary caregivers. Transportation: MOB reports this is adequate. Programs/Agencies Involved: Current with [facility] for Medicaid and WIC. MOB and FOB agree to [facility] referral. Behavioral Health Issues: Mental Health History: MOB denies any history of mental health issues or suicidal thoughts/plans/intent. Denies any mood disturbances during this . Substance Use History: Denies any history and does not smoke tobacco. Family History: No reports of any family history. Drug Screens: Negative maternal drug screens 08.09.2018 and 02.09.2019. Family/Social Stressors: none identified or reported. was unplanned but accepted per MOB. MOB did move from [facility] to [facility] during this . Support Systems: MOB reports FOB, mother, and FOB?s mother are all good and strong supports. Depression/Shaken Baby/Safe Sleeping : Educated MOB and FOB to depression and anxiety. FOB reports familiarity with this as FOB?s sister had depression. FOB reports his mother was helpful to his sister in getting through the depression. Educated MOB and FOB to shaken baby prevention and safe sleeping. ASSESSMENT: Met with MOB alone initially and later joined by FOB. MOB wide eyed, almost seeming surprised when social services technician would ask questions and then at other times MOB was more talkative and seeming relaxed, such as when talking about breast feeding and how trying to get the hang of this. MOB was appropriate in responses but did not offer a lot of information, just the basic answers. MOB held good eye contact, but when FOB was present MOB would sometimes look at FOB before answering. FOB remained quiet overall but participated when prompted by social services technician. Affect constricted and MOB did smile at appropriate times. MOB held baby during assessment, was gentle with baby, and gazed at baby a few times. MOB reports to love the baby, to have a positive connection to the baby, and to be happy about the baby. Privately MOB is reporting to feel safe in current home situation and denies any abuse history in current relationship. MOB reports to feel good about going home, reports to feel to have adequate support, and also reports willingness to accept a [facility] [place] extra support. FOB reports has taken a week off of work to help MOB with transition home. FOB?s parents will also be around and able to help out when not working. PLAN: MOB and baby to home when ready. MOB and FOB given depression and anxiety packet, including some online resources for support. [facility] resources list given, but will return to provide [facility] information. [facility] [place]. -CARLOS Liang, RADIO SALES ACCOUNT EXECUTIVE
[2019-02-12 15:47] VITALS: BP 137/78; PULSE 72; RESP 14; TEMP 36.6
[2019-02-12 19:54] VITALS: BP 141/77; PULSE 80; RESP 16; TEMP 37; O2SAT 98
[2019-02-13 02:19] VITALS: BP 123/92; PULSE 85; RESP 16; TEMP 36.9; O2SAT 95
[2019-02-13 08:34] VITALS: BP 112/68; PULSE 80; RESP 18; TEMP 36.6; O2SAT 16
--- NOTE | 2019-02-13 08:35 | PCM.PN.OB ---
Subjective: Patient without complaints. Breast-feeding going well. Ready to go home today if baby is able to go. If not plans to go to hotel status. - Physical Exam Vital Signs Temp Pulse Resp BP Pulse Ox 98.4 F 85 16 123/92 H 95 02/13/19 02:19 02/13/19 02:19 02/13/19 02:19 02/13/19 02:19 02/13/19 02:19 Oxygen Delivery Method Room Air Weight: 177 lb 9.6 oz Body Mass Index (BMI) 39.8 Intake and Output for Last 24 Hours 02/11/19 02/12/19 02/13/19 23:59 23:59 23:59 Intake Total 1459 / 1459 Output Total 1400 / 1400 950 / 950 Balance 59 / 59 -950 / -950 Medical Necessity - Tobacco Use Smoking Status: Never smoker Assessment/Plan All Active Problems Cholelithiasis (Acute) Elevated liver enzymes (Acute) Pruritus of in third trimester (Acute) Doing well day #2 status post routine spontaneous vaginal delivery. Will release to home with routine instructions.
--- NOTE | 2019-02-13 10:00 | CASEMGMT ---
Social Work Labor and Delivery Official consult received from OBGYN for mother of baby (MOB) with flat affect and resources. This editorial writer completed full assessment on 02.12.2019 as per social work identification on MOB's age and being a first time mother. Returned to MOB's room today. Father of baby (FOB) also in the room. MOB in bed, working on breast feeding baby. MOB smiled when socia worker entered the room. MOB reports the breast feeding is starting to go better an feeling more comfortable. This editorial writer provided a comprehensive resources list for [facility], which does include parent support programs, mental health resources, and long-term. MOB and FOB accepting of list provided. MOB denies nay other needs for home going. MOB and FOB have been educated to mood and anxiety issues, and resources were previously provided. Plan: MOB and baby to home today. Resources provided for [facility]. MOB is agreeable to a [facility] referral. No other services requested or indicated. -LOU Liang, COCKTAIL SERVER
--- NOTE | 2019-02-14 09:26 | CASEMGMT ---
Social Work Labor and Delivery [facility] referral made via the [facility]'s secure web based referral system. -LOU Liang, ABLE SEAMAN
[2019-02-18 08:49] LABS: Pathology Specimen OB SEE PATHOLOGY REPORT
== END 2019-02-13 11:40 | disposition home or self-care (01) | DRG 560 ==
PROVIDERS: Admitting Provider Obstetrics & Gynecology; Referring Provider Obstetrics & Gynecology; Visit Provider Obstetrics & Gynecology
DX: O60.14X0 Preterm labor third trimester with preterm delivery third trimester, not applicable or unspecified (principal); O13.4 Gestational [pregnancy-induced] hypertension without significant proteinuria, complicating childbirth; O77.0 Labor and delivery complicated by meconium in amniotic fluid; O76 Abnormality in fetal heart rate and rhythm complicating labor and delivery; Z3A.37 37 weeks gestation of pregnancy; Z37.0 Single live birth; O99.613 Diseases of the digestive system complicating pregnancy, third trimester; K80.20 Calculus of gallbladder without cholecystitis without obstruction; O26.893 Other specified pregnancy related conditions, third trimester; L29.9 Pruritus, unspecified
CPT/HCPCS: 36415; 59025; 59050; 76705; 76816; 76818; 80053; 80074; 80307; 81001; 82248; 82565; 82570; 82962; 82977; 84156; 84450; 84460; 84550; 85025; 85027; 85384; 85610; 85730; 86850; 86900; 87086; 87088; 88307; 96372; 99218; J7120; A4216; G0378; J0702

== ENCOUNTER → 2019-09-06 16:59 | Outpatient (CLI) | payer MEDICAID, SELFPAY ==
--- NOTE | 2019-09-06 17:04 | RAD_ITS ---
STUDY: X-RAY CHEST REASON FOR EXAM: Female, 18 years old. Post-tussive emesis TECHNIQUE: Frontal and lateral views COMPARISON: December 29, 2016 FINDINGS: The lungs are clear and expanded. There is no demonstrated pleural abnormality. Normal size heart. Normal mediastinum and jaycee. Normal visualized pulmonary arteries. Normal visualized aortic arch and descending thoracic aorta. Normal visualized thoracic spine. Normal visualized ribs, clavicles, and shoulders. There is no demonstrated abnormality of the visualized soft tissue structures of the upper abdomen. RAD/Chest PA and Lateral IMPRESSION: Normal x-ray examination of the chest. Electronically Signed: Juan F Dobson DO at 13:26 EST Tel [phone], Service support ,
== END ==
PROVIDERS: Family Provider Family Medicine; PCP Family Medicine; Referring Provider Family Medicine; Visit Provider Family Medicine
DX: R11.10 Vomiting, unspecified (principal)
CPT/HCPCS: 71046

== ENCOUNTER → 2019-09-30 14:57 | Outpatient (CLI) | payer MEDICAID, SELFPAY ==
--- NOTE | 2019-09-30 14:59 | ECHOCS_ITS ---
Reason For Study: Murmur Procedure This was a 2D Doppler, Color Flow transthoracic echocardiogram. Contrast injection was performed. Exam performed in department. Left Ventricle Normal LV size. Left ventricular systolic function is normal. The estimated ejection fraction is 65 %. Normal diastology for age. No regional wall motion abnormalities noted. Right Ventricle Normal RV size. Normal systolic function. Atria Normal left atrium. Normal right atrium. Mitral Valve Normal mitral valve. Tricuspid Valve Normal tricuspid valve. Mild tricuspid valve insufficiency. Aortic Valve Normal aortic valve. Pulmonic Valve Normal pulmonic valve. Great Vessels Normal aortic root. The pulmonary artery is normal size. Normal inferior vena cava. Pericardium/Pleural No pericardial effusion. Medication Diluted definity 4ml given slow IV push to enhance endocardial definition. MMode/2D Measurements & Calculations LVIDd: 4.1 cm IVSd: 0.98 cm Ao root diam: 2.1 cm LVIDs: 2.5 cm LVPWd: 0.83 cm RVDd: 3.1 cm FS: 38.8 % LAV(MOD-bp): 36.2 ml LVAd ap4: 21.8 cm2 SV(MOD-sp4): 30.5 ml LAV(MOD-bp) Indexed: 21.9 ml/m2 EDV(MOD-sp4): 55.2 ml LAV(MOD-sp2): 43.3 ml EDV(sp4-el): 58.2 ml LAV(MOD-sp4): 30.5 ml LVAs ap4: 12.9 cm2 ESV(MOD-sp4): 24.7 ml ESV(sp4-el): 25.4 ml EF(MOD-sp4): 55.2 % EF(sp4-el): 56.4 % SV(sp4-el): 32.8 ml LA A4 area: 12.8 cm2 LA dimension(2D): 3.5 cm RA A4 area: 11.4 cm2 Doppler Measurements & Calculations MV E max carl: 126.5 cm/sec Lat Peak E' Carl: 13.6 cm/sec Med Peak E' Carl: 13.4 cm/sec MV A max carl: 68.0 cm/sec E/E' lat: 9.3 E/E' med: 9.5 MV E/A: 1.9 Ao V2 max: 141.7 cm/sec LV V1 max: 119.3 cm/sec PA V2 max: 108.7 cm/sec Ao max P.0 mmHg LV V1 max P.7 mmHg Ao V2 mean: 100.1 cm/sec Ao mean P.4 mmHg Ao V2 VTI: 29.5 cm TR max carl: 194.5 cm/sec TR max P.1 mmHg Interpretation Summary Normal LV size. Left ventricular systolic function is normal. The estimated ejection fraction is 65 %. Normal diastology for age. Mild tricuspid valve insufficiency. Ordering Physician: Leobardo Marquez Referring Physician: Leobardo Marquez Performed By: Anita Marcos, JOSE, RVT
== END ==
PROVIDERS: PCP Family Medicine; Referring Provider Family Medicine; Visit Provider Family Medicine
DX: R11.10 Vomiting, unspecified (principal); R01.1 Cardiac murmur, unspecified
CPT/HCPCS: 93306; Q9957; A4216; C8929